=== PATIENT | female | born 1985 | race American Indian/Alaskan Native ===

== ENCOUNTER 2018-04-17 10:41 | Emergency (ER) | payer SELFPAY ==
[2018-04-17 11:00] VITALS: BP 132/72
--- NOTE | 2018-04-17 11:45 | Emergency Department Report ---
Chief Complaint: Extremity Injury, Lower Stated Complaint: SWOLLEN ANKLE/FOOT PAIN Time Seen by Provider: 04/17/18 11:15 - HPI History of Present Illness: Patient is a 32-year-old Female who presented with left foot pain mostly at the arch radiating to the heel has been hurting for several months. Patient states she's been taking prophylactic counter without relief. 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 Patient denies any trauma. - ROS Review of Systems: All other systems reviewed and are negative - Exam Vital Signs: Vital Signs 04/17/18 10:56 Temperature 98.7 F Pulse Rate 77 Respiratory 16 Rate Blood Pressure 132/72 O2 Sat by Pulse 98 Oximetry Physical Exam: Focused physical exam shows that the patient has bilateral mild foot swelling without edema or warmth or erythema. There is some tenderness to the left arch. MSE screening note: Focused history and physical exam performed. Due to findings the following was ordered: ED Medical Decision Making - Medical Decision Making Patient's pain is chronic at this time. Patient has been referred to podiatry as well as [facility]. Patient also given information about plantar fasciitis foot splints that she can use at home at night. Patient be discharged home. ED Disposition for [facility] [place] Impression: Plantar fasciitis of left foot Disposition: Z- MED SCREENING EXAM-LEFT Is pt being admited?: No Does the pt Need Aspirin: No Condition: Stable Instructions: Plantar Fasciitis (ED) Referrals: JUSTINE GUTHRIE DPM [Staff Physician] - 3-5 Days Time of Disposition: 11:45
== END 2018-04-17 11:57 | disposition left against medical advice (07) ==
LOC: ED 10:41
DX: M72.2 Plantar fascial fibromatosis (principal)
CPT/HCPCS: 99282